=== PATIENT | male | born 1970 | race Caucasian/White ===

== ENCOUNTER 2022-03-28 14:19 | Inpatient (IN) | payer OTHER, BC ==
[2022-03-28 14:34] LABS: Basophils # (A) 0.1 k/uL (0-0.2); Basophils % (A) 1 %; Eosinophils # (A) 0.2 k/uL (0-0.7); Eosinophils % (A) 2 %; HCT 41.2 % (39.0-53.0); HGB 15.4 gm/dL (13.0-17.5); Lymphocytes # (A) 2.8 k/uL (1.0-4.8); Lymphocytes % (A) 38 %; MCH 34.7 pg (25.0-35.0); MCHC 37.4 g/dL (31.0-37.0); MCV 92.9 fL (80.0-100.0); Mean Platelet Volume 7.8; Monocytes # (A) 0.3 k/uL (0-1.0); Monocytes % (A) 4 %; Neutrophils # (A) 3.9 k/uL (1.3-7.7); Neutrophils % (A) 52 %; Platelet Count 188 k/uL (150-450); RBC 4.44 m/uL (4.30-5.90); RDW 12.5 % (11.5-15.5); WBC 7.4 k/uL (3.8-10.6)
[2022-03-28 14:42] LABS: ALT 124 U/L (4-49); AST 236 U/L (17-59); African American GFR (CKD) >90 (>60 ml/min/1.73 sqM); Albumin 4.5 g/dL (3.5-5.0); Alkaline Phosphatase 53 U/L (38-126); Anion Gap 12 mmol/L; Blood Urea Nitrogen 16 mg/dL (9-20); Calcium 8.2 mg/dL (8.4-10.2); Carbon Dioxide 22 mmol/L (22-30); Chloride 107 mmol/L (98-107); Glucose 141 mg/dL (74-99); Non-African American GFR(CKD) 84 (>60 ml/min/1.73 sqM); Potassium 3.8 mmol/L (3.5-5.1); Sodium 141 mmol/L (137-145); Total Bilirubin 0.3 mg/dL (0.2-1.3); Total Protein 7.1 g/dL (6.3-8.2)
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
[2022-03-28 14:43] LABS: INR 0.9 (<1.2)
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
[2022-03-28 14:47] LABS: Alcohol 239 mg/dL
[2022-03-28 14:48] LABS: Partial Thromboplastin Time 19.2 sec (22.0-30.0)
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
[2022-03-28 15:29] LABS: Appearance,Urine Clear (Clear); Bilirubin,Urine Negative (Negative); Blood,Urine Moderate (Negative); Color,Urine Light Yellow; Glucose,Urine (UA) Negative (Negative); Ketones,Urine Negative (Negative); Leukocyte Esterase,Urine Negative (Negative); Mucus,Urine Rare /hpf; Nitrite,Urine Negative (Negative); Protein,Urine Trace (Negative); RBC,Urine 4 /hpf (0-5); Specific Gravity,Urine 1.011 (1.001-1.035); Squamous Epithelial Cell,Urine 1 /hpf (0-4); Urobilinogen,Urine <2.0 mg/dL (<2.0); WBC,Urine 2 /hpf (0-5)
[2022-03-28 15:38] LABS: Amphetamine Screen,Urine Not Detected (NotDetected); Barbiturate Screen,Urine Not Detected (NotDetected); Benzodiazepines Screen,Urine Not Detected (NotDetected); Cocaine Screen,Urine Not Detected (NotDetected); Methadone Screen, Urine Not Detected (NotDetected); Opiate Screen,Urine Not Detected (NotDetected); Oxycodone Screen, Urine Not Detected (NotDetected); Phencyclidine Screen,Urine Not Detected (NotDetected); Tricyclic Antidepressant,Urine Not Detected (NotDetected); Urn Cannabinoid Scrn Not Detected (NotDetected)
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
[2022-03-28] MEDS ORDERED: FLUORESCEIN STRIPS 1 MG STRIP RIGHT EYE ONE (16:08)
[2022-03-28] MEDS ORDERED: NALOXONE 0.4 MG/ML 1 ML VIAL IV PRN (16:51)
[2022-03-28] MEDS ORDERED: LORazepam 2 MG/ML INJ IV PRN (16:51)
--- NOTE | 2022-03-28 20:05 | XR ---
EXAMINATION TYPE: XR shoulder complete RT DATE OF EXAM: 03/28/2022 COMPARISON: NONE HISTORY: Pain TECHNIQUE: 3 view FINDINGS: There is nondisplaced fracture of the midshaft of the right clavicle. The glenohumeral join t is intact. Scapula is intact. IMPRESSION: Acute nondisplaced clavicle fracture. No fracture of the shoulder joint.
[2022-03-28] MEDS: FAMOTIDINE 20 MG TAB PO SCH (20:10)
[2022-03-28] MEDS: SODIUM CHLORIDE 0.9% 1,000 ML IV SCH ×2 (20:11→21:38)
[2022-03-28] MEDS: ACETAMINOPHEN TAB 325 MG TAB PO PRN ×2 (20:11→23:51)
[2022-03-28] MEDS: SULFAMETHOX-TMP 800-160MG 1 EACH TAB PO SCH (20:12)
[2022-03-28] MEDS: MORPHINE SULFATE 4 MG/ML SYRINGE IVP PRN (21:57)
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
[2022-03-29] MEDS: KETOROLAC 15 MG/ML 1 ML VIAL IVP PRN ×2 (02:41→10:42)
[2022-03-29 04:25] VITALS: TEMP 98.1
[2022-03-29] MEDS: MORPHINE SULFATE 4 MG/ML SYRINGE IVP PRN ×2 (04:30→14:45)
[2022-03-29] MEDS: ACETAMINOPHEN TAB 325 MG TAB PO PRN (04:31)
[2022-03-29 06:16] LABS: Basophils % (A) 0 %; Eosinophils % (A) 0 %; HCT 42.8 % (39.0-53.0); HGB 14.2 gm/dL (13.0-17.5); Lymphocytes # (A) 0.6 k/uL (1.0-4.8); Lymphocytes % (A) 10 %; MCH 31.9 pg (25.0-35.0); MCHC 33.1 g/dL (31.0-37.0); MCV 96.2 fL (80.0-100.0); Mean Platelet Volume 8.6; Monocytes # (A) 0.4 k/uL (0-1.0); Monocytes % (A) 7 %; Neutrophils # (A) 5.2 k/uL (1.3-7.7); Neutrophils % (A) 81 %; Platelet Count 128 k/uL (150-450); RBC 4.45 m/uL (4.30-5.90); RDW 12.5 % (11.5-15.5); WBC 6.4 k/uL (3.8-10.6)
[2022-03-29 06:39] LABS: African American GFR (CKD) >90 (>60 ml/min/1.73 sqM); Anion Gap 10 mmol/L; Blood Urea Nitrogen 16 mg/dL (9-20); Calcium 8.3 mg/dL (8.4-10.2); Carbon Dioxide 23 mmol/L (22-30); Chloride 103 mmol/L (98-107); Glucose 130 mg/dL (74-99); Non-African American GFR(CKD) >90 (>60 ml/min/1.73 sqM); Sodium 136 mmol/L (137-145)
[2022-03-29 06:41] LABS: Potassium 4.6 mmol/L (3.5-5.1)
[2022-03-29] MEDS ORDERED: HEPARIN SODIUM,PORCINE/PF 5,000 UNIT/0.5 ML SYRINGE SQ SCH (08:00)
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
[2022-03-29] MEDS: FAMOTIDINE 20 MG TAB PO SCH (08:39)
[2022-03-29] MEDS: SULFAMETHOX-TMP 800-160MG 1 EACH TAB PO SCH (08:39)
[2022-03-29] MEDS: HYDROcodone/APAP 5-325MG 1 EACH TAB PO PRN ×2 (08:39→13:11)
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
[2022-03-29 11:14] LABS: ALT 89 U/L (4-49); AST 64 U/L (17-59); African American GFR (CKD) >90 (>60 ml/min/1.73 sqM); Albumin 4.1 g/dL (3.5-5.0); Albumin/Globulin Ratio 1.6; Alkaline Phosphatase 42 U/L (38-126); Anion Gap 8 mmol/L; Blood Urea Nitrogen 18 mg/dL (9-20); Calcium 8.4 mg/dL (8.4-10.2); Carbon Dioxide 26 mmol/L (22-30); Chloride 102 mmol/L (98-107); Globulin 2.5 g/dL; Glucose 115 mg/dL (74-99); Magnesium 2.1 mg/dL (1.6-2.3); Non-African American GFR(CKD) >90 (>60 ml/min/1.73 sqM); Potassium 4.3 mmol/L (3.5-5.1); Sodium 136 mmol/L (137-145); Total Bilirubin 0.7 mg/dL (0.2-1.3); Total Protein 6.6 g/dL (6.3-8.2)
[2022-03-29 13:27] VITALS: RESP 15
[2022-03-29 14:18] VITALS: BP 139/78; PULSE 62
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
== END 2022-03-29 16:50 | disposition home or self-care (01) | DRG 87 ==
LOC: EC 14:19 → 5NMEDONC 16:51 → OBSVTOIN 03-29 12:03
PROVIDERS: ADMIT Surgery; ATTEND Surgery
PROC: HZ2ZZZZ Detoxification Services for Substance Abuse Treatment (ICD-10-PCS; principal; 2022-03-29)
DX: S02.85XA Fracture of orbit, unspecified, initial encounter for closed fracture (principal); S50.311A Abrasion of right elbow, initial encounter; S42.021A Displaced fracture of shaft of right clavicle, initial encounter for closed fracture; S00.81XA Abrasion of other part of head, initial encounter; S00.03XA Contusion of scalp, initial encounter; F10.129 Alcohol abuse with intoxication, unspecified; V86.55XA Driver of 3- or 4- wheeled all-terrain vehicle (ATV) injured in nontraffic accident, initial encounter; Y90.8 Blood alcohol level of 240 mg/100 ml or more; V89.2XXA Person injured in unspecified motor-vehicle accident, traffic, initial encounter
CPT/HCPCS: 36415; 70450; 71045; 71260; 72125; 72170; 74177; 80053; 80306; 80320; 81001; 83735; 85025; 85610; 85730; 86850; 86900; 86901; 99291